=== PATIENT | female | born 1990 | race American Indian/Alaskan Native ===

== ENCOUNTER 2020-12-29 01:24 | Emergency (ER) | payer MEDICAID ==
[2020-12-29 01:30] VITALS: BP 151/91
--- NOTE | 2020-12-29 02:12 | Event Note ---
ED Screening Note Date of service: 12/29/20 Time: 02:00 ED Screening Note: Patient is a 30-year-old -[place] female with a history of obesity, [id number]-lotadyiaa diabetes and hyperlipidemia presents to the ED with complaint of acute onset persistent left-sided chest pain and palpitations intermittently for the last 4 days. Patient states that the palpitation is worse at night when she lays down to sleep. Patient states that she has not had any good sleep in the last 4 days because of persistent palpitations and left- sided chest pain. Patient denies shortness of breath, cough, nausea, vomiting, abdominal pain, neck pain, shoulder pain, headache, dizziness, syncope, seizures, fever and chills. This initial assessment/diagnostic orders/clinical plan/treatment(s) is/are subject to change based on patients health status, clinical progression and re- assessment by fellow clinical providers in the ED. Further treatment and workup at subsequent clinical providers discretion. Patient/guardian urged not to elope from the ED as their condition may be serious if not clinically assessed and managed. Initial orders include: CBC, CMP, EKG, chest x-ray, troponin x2
[2020-12-29 02:36] LABS: Basophils % (Auto) 0.5 % (0.0-1.8); Eosinophils # (Auto) 0.1 K/mm3 (0.0-0.4); Eosinophils % (Auto) 1.8 % (0.0-4.3); Hematocrit 35.2 % (30.3-42.9); Hemoglobin 11.7 gm/dl (10.1-14.3); Lymphocytes # (Auto) 2.3 K/mm3 (1.2-5.4); Lymphocytes % (Auto) 29.2 % (13.4-35.0); Mean Corpuscular HGB Conc 33 % (30-34); Mean Corpuscular Volume 78 fl (79-97); Monocytes # (Auto) 0.4 K/mm3 (0.0-0.8); Monocytes % (Auto) 5.2 % (0.0-7.3); Platelet Count 327 K/mm3 (140-440); Red Blood Count 4.53 M/mm3 (3.65-5.03); Red Cell Distribution Width 14.8 % (13.2-15.2)
[2020-12-29 02:57] LABS: Alanine Aminotransferase 14 units/L (7-56); Albumin 3.9 g/dL (3.9-5); Blood Urea Nitrogen 10 mg/dL (7-17); Calcium 8.7 mg/dL (8.4-10.2); Hemolysis Index 1
[2020-12-29 02:59] LABS: BUN/Creatinine Ratio 14
--- NOTE | 2020-12-29 05:45 | XRay Report ---
CHEST 2 VIEWS INDICATION / CLINICAL INFORMATION: chest pain, palpitations. COMPARISON: None available. FINDINGS: SUPPORT DEVICES: None. HEART / MEDIASTINUM: No significant abnormality. LUNGS / PLEURA: No significant pulmonary or pleural abnormality. No pneumothorax. ADDITIONAL FINDINGS: No significant additional findings. IMPRESSION: 1. No acute findings. Signer Name: Braden Cedeno MD Signed: 12/29/2020 5:41 AM Workstation Name: [id number]
--- NOTE | 2020-12-29 08:13 | Emergency Department Report ---
ED Chest Pain HPI - General Chief Complaint: Chest Pain Stated Complaint: CHEST PAIN/THIGHS BURNING Time Seen by Provider: 12/29/20 08:06 Source: patient Mode of arrival: Ambulatory Limitations: No Limitations - History of Present Illness Initial Comments: 30-year-old morbid obese -Af[place] female with presents to the emergency room for persistent chest pain and palpitations that is been going on for months. Patient states that when she sleeps she is waking with palpitations and chest pain. Patient states that she has chest pain every day all day long. Patient states that the chest pain is in the middle upper chest. Patient denies any shortness of breath. She states that she has diabetes and is currently on Metformin and has hyperlipidemia and is on atorvastatin. Patient states that she has stopped smoking marijuana a while ago thinking that that would help with the chest pain. Patient denies any family history of cardiac disease. Patient states her last menstrual period was 11/28/2020. Patient reports that she has a primary care provider at [facility] but has not seen them at all for this as she keeps missing her appointments. Patient denies any diaphoresis no radiation of pain no nausea no vomiting no leg swelling. MD Complaint: chest pain - Related Data Allergies Allergy/AdvReac Type Severity Reaction Status Date / Time No Known Allergies Allergy Unverified 12/29/20 01:30 Heart Score - HEART Score History: Slightly suspicious EKG: Non-specific Age: < 45 Risk factors: > 3 risk factors or hx of atherosclerotic disease Troponin: < normal limit HEART Score: 3 - EKG Read Time Time EKG Completed: 01:35 (2nd EKG showed left foot) EKG Read Time: 01:45 ED Review of Systems ROS: Stated complaint: CHEST PAIN/THIGHS BURNING Other details as noted in HPI ED Past Medical Hx - Past Medical History Previous Medical History?: Yes Hx Diabetes: Yes - Surgical History Past Surgical History?: Yes Additional Surgical History: ED Physical Exam - General Limitations: No Limitations General appearance: alert, in no apparent distress - Head Head exam: Present: atraumatic, normocephalic - Eye Eye exam: Present: normal appearance - ENT ENT exam: Present: mucous membranes moist - Neck Neck exam: Present: normal inspection - Respiratory Respiratory exam: Present: normal lung sounds bilaterally, chest wall tenderness. Absent: respiratory distress - Cardiovascular Cardiovascular Exam: Present: regular rate, normal rhythm, normal heart sounds - GI/Abdominal GI/Abdominal exam: Present: soft, normal bowel sounds. Absent: distended, tenderness - Extremities Exam Extremities exam: Present: normal inspection - Back Exam Back exam: Present: normal inspection - Neurological Exam Neurological exam: Present: alert, oriented X3, normal gait - Psychiatric Psychiatric exam: Present: normal affect, normal mood - Skin Skin exam: Present: warm, dry, intact, normal color. Absent: rash ED Course Vital Signs 12/29/20 01:28 Temperature 97.5 F L Pulse Rate 85 Respiratory 20 Rate Blood Pressure 151/91 O2 Sat by Pulse 100 Oximetry WILMAR score - Wilmar Score Age > 65: (0) No Aspirin use within the Past 7 Days: (0) No 3 or more CAD Risk Factors: (0) No 2 or more Angina events in past 24 hrs: (0) No Known CAD with more than 50% Stenosis: (0) No Elevated Cardiac Markers: (0) No ST Deviation Greater than 0.5mm: (0) No WILMAR Score: 0 ED Medical Decision Making - Lab Data Result diagrams: 12/29/20 02:17 12/29/20 02:17 - Radiology Data Radiology results: report reviewed [facility] [address] [place] [address] XRay Report Signed Patient: CONTRERAS BIRD MR#: [id number] : 1990 Acct:[id number] Age/Sex: 30 / F ADM Date: 12/29/20 Loc: ED Attending Dr: Ordering Physician: KATHIE HUSTON Date of Service: 12/29/20 Procedure(s): XR chest routine 2V Accession Number(s): [id number] cc: KATHIE HUSTON Fluoro Time In Minutes: CHEST 2 VIEWS INDICATION / CLINICAL INFORMATION: chest pain, palpitations. COMPARISON: None available. FINDINGS: SUPPORT DEVICES: None. HEART / MEDIASTINUM: No significant abnormality. LUNGS / PLEURA: No significant pulmonary or pleural abnormality. No pneumothorax. ADDITIONAL FINDINGS: No significant additional findings. IMPRESSION: 1. No acute findings. Signer Name: Braden Cedeno MD Signed: 12/29/2020 5:41 AM Workstation Name: [id number][id number] Transcribed By: Dictated By: Braden Cedeno MD Electronically Authenticated By: Braden Cedeno MD Signed Date/Time: 12/29/20540 DD/ 9 TD/TT: Print Cancel - Medical Decision Making 30-year-old morbid obese -[place] female with presents to the emergency room for persistent chest pain and palpitations that is been going on for months. Patient states that when she sleeps she is waking with palpitations and chest pain. Patient states that she has chest pain every day all day long. Patient states that the chest pain is in the middle upper chest. Patient denies any shortness of breath. She states that she has diabetes and is currently on Metformin and has hyperlipidemia and is on atorvastatin. Patient states that she has stopped smoking marijuana a while ago thinking that that would help with the chest pain. Patient denies any family history of cardiac disease. Patient states her last menstrual period was 11/28/2020. Patient reports that she has a primary care provider at [facility] but has not seen them at all for this as she keeps missing her appointments. Patient denies any diaphoresis no radiation of pain no nausea no vomiting no leg swelling. Patient had a full cardiac work-up with no concerns for GA. Patient had 2 - troponins. EKG are stable lead work is within normal limits for her. Chest x- ray shows no acute processes. I discussed the patient that she can take Tylenol or ibuprofen for discomfort. She needs to follow-up with her primary care provider. Discussed with patient I will refer her to her rough and trueing machine operator. Discuss ed with patient to lose weight. Patient has been evaluated for 6 hours with no decline in her condition. All vital signs have been stable. Patient was on a monitor when I entered her room. Her heart rate was 73 bpm 100% on room air respirations were 16. The patient is resting comfortably and feeling better, is alert and in no distress. The repeat examination is unremarkable and benign. The electrocardiogram shows no signs of acute ischemia and the history, exam, diagnostic testing and current condition do not suggest that this patient is having acute myocardial infarction, significant arrhythmia, unstable angina, esophageal perforation, pulmonary embolism, aortic dissection, pneumothorax, severe pneumonia, sepsis or other significant pathology that would warrant further testing, continued ED treatment, admission, or cardiology or other specialist consultation at this point. The vital signs have been stable. The patient's condition is stable and appropriate for discharge. The patient will pursue further outpatient evaluation with primary care physician, other designated physician or rough and trueing machine operator. The patient and/or caregiver have expressed a clear in thorough understanding and agrees to the follow-up as instructed. Critical Care Time: Yes (35) Critical care attestation.: If time is entered above; I have spent that time in minutes in the direct care of this critically ill patient, excluding procedure time. ED Disposition Clinical Impression: Nonspecific chest pain, Morbid obesity, Diabetes 1.5, managed as type 2, Hyperlipidemia associated with type 2 diabetes mellitus Disposition: - TO HOME OR SELFCARE Is pt being admited?: No Does the pt Need Aspirin: No Condition: Stable Instructions: Diabetes Mellitus Type 2 in Adults (ED), Nonspecific Chest Pain, Adult, [id number] Additional Instructions: Your cardiac work-up has been normal does not show any concerns for a heart attack. I do recommend either Tylenol or ibuprofen for pain. Follow-up with a rough and trueing machine operator I have listed 1 below follow-up with your primary care provider I have listed 1 below lose weight as this will help. Maintain your diabetes. Referrals: PRIMARY CAREMD [Primary Care Provider] - 3-5 Days [facility] [Provider Group] - 3-5 Days [facility] [Provider Group] - 3-5 Days
--- NOTE | 2020-12-31 09:13 | Electrocardiograph Report ---
[facility] Test Date: 2020-12-29 Test Time: 01:34:59 Pat Name: CONTRERAS BIRD Department: Room: Gender: F Drafting Engineer: THANG : 1990 Requested By: HANNAH PATTERSON Order Number: [id number] Reading MD: Vdaim Velazquez Measurements Intervals [place] Rate: 79 P: 9 AL: 171 QRS: 61 QRSD: 80 T: 39 QT: 385 QTc: 443 Interpretive Statements Sinus rhythm No previous ECG available for comparison Electronically Signed On 12-31-2020 9:13:01 EDT by Vadim Velazquez
--- NOTE | 2020-12-31 09:14 | Electrocardiograph Report ---
[facility] Test Date: 2020-12-29 Test Time: 07:39:16 Pat Name: CONTRERAS BIRD Department: Room: Gender: F Scientific Affairs Manager: : 1990 Requested By: KENDRA LARES Order Number: [id number] Reading MD: Vadim Velazquez Measurements Intervals [place] Rate: 76 P: 11 [place]: 171 QRS: 62 QRSD: 84 T: 50 QT: 405 QTc: 457 Interpretive Statements Sinus rhythm ST elevation suggests acute pericarditis Compared to ECG 12/29/2020 01:34:59 ST (T wave) deviation now present Electronically Signed On 12-31-2020 9:13:42 EDT by Vadim Velazquez
== END 2020-12-29 08:22 | disposition home or self-care (01) ==
LOC: ED 01:24
DX: E78.5 Hyperlipidemia, unspecified (principal); E11.9 Type 2 diabetes mellitus without complications; R07.89 Other chest pain; E66.8 Other obesity; Z98.890 Other specified postprocedural states
CPT/HCPCS: 36415; 71046; 80053; 84484; 84703; 85025; 93005; 99283

== ENCOUNTER → 2021-09-02 | Outpatient (CLI) | payer MEDICAID | END | disposition home or self-care (01) | LOC: SLR 11:00 | PROVIDERS: ATTEND Internal Medicine Critical Care Medicine | DX: G47.33 Obstructive sleep apnea (adult) (pediatric) (principal) | CPT/HCPCS: G0399 ==